=== PATIENT | female | born 1945 | race Two or more races ===

== ENCOUNTER 2024-10-06 14:33 | Emergency (ER) | payer OTHER ==
[~2024-10-06] VITALS: Ht 147.3 cm; Wt 82.6 kg
[2024-10-06 17:27] VITALS: BP 125/62; TEMP 98.3; O2SAT 97
== END 2024-10-06 17:28 | disposition home or self-care (01) ==
LOC: ER 14:48
DX: S00.83XA Contusion of other part of head, initial encounter (principal); M79.602 Pain in left arm; M79.605 Pain in left leg; I10 Essential (primary) hypertension; E11.9 Type 2 diabetes mellitus without complications; E78.5 Hyperlipidemia, unspecified; Z88.2 Allergy status to sulfonamides; W01.0XXA Fall on same level from slipping, tripping and stumbling without subsequent striking against object, initial encounter; Y93.89 Activity, other specified; Y92.89 Other specified places as the place of occurrence of the external cause; Y99.8 Other external cause status
CPT/HCPCS: 70450-TC; 71045-TC; 72125-TC; 72170-TC; 73030-TC; 73080-TC; 73110; 73130-TC; 73552